=== PATIENT | female | born 1975 | race Caucasian/White ===

== ENCOUNTER 2016-11-04 19:25 | Emergency (ER) | payer OTHER ==
[~2016-11-04] VITALS: Ht 165.1 cm; Wt 85.7 kg
[2016-11-04] MEDS ORDERED: PHENobarbital 30 MG TAB PO ONE (20:30)
[2016-11-04] MEDS ORDERED: cloNIDine 0.1 MG TAB PO ONE (20:30)
[2016-11-04 20:46] VITALS: BP 138/89
[2016-11-04] MEDS ORDERED: AMMONIA AROMATIC INHALANT (FLOOR STOCK) As Ordered ONE (23:59)
[2016-11-05] MEDS ORDERED: METAL LOCK LOOP XX ONE (05:47)
== END 2016-11-04 20:47 | disposition home or self-care (01) ==
LOC: M ED 20:31
DX: F11.23 Opioid dependence with withdrawal (principal); F31.9 Bipolar disorder, unspecified; F17.200 Nicotine dependence, unspecified, uncomplicated; Z88.8 Allergy status to other drugs, medicaments and biological substances

== ENCOUNTER → 2025-02-17 | Outpatient (CLI) | payer OTHER | LOC: M RAD 10:16 | PROVIDERS: ATTEND Internal Medicine Gastroenterology | DX: B18.2 Chronic viral hepatitis C (principal); K76.0 Fatty (change of) liver, not elsewhere classified; R16.0 Hepatomegaly, not elsewhere classified ==